=== PATIENT | female | born 1955 ===

== ENCOUNTER 2025-04-11 05:45 | Day surgery (SDC) | payer OTHER, SELFPAY ==
[2025-03-27 10:50] LABS: Hematocrit 37.1 % (37.0-47.0); Hemoglobin 12.7 g/dL (12.0-16.0); Mean Corp Hgb Conc. 34.2 g/dL (33.0-37.0); Mean Corpuscular Volume 89.4 fL (81.0-99.0); Platelet Count 244 10^3/uL (130-400); Red Cell Dist. Width 11.9 % (11.5-14.5)
[2025-03-27 11:12] LABS: Blood Urea Nitrogen 15 mg/dl (7-17); Calcium 9.5 mg/dl (8.4-10.2); Carbon Dioxide 28 mmol/L (22-30); Chloride 99 mmol/L (98-107); Glucose 101 mg/dl (70-99); Potassium 4.1 mmol/L (3.5-5.1); Sodium 136 mmol/L (135-145); eGFR > 60.00
[2025-03-27 13:49] VITALS: BMI 24.1
[2025-04-11] VITALS (8 sets, daily range): BP systolic 116–130; BP diastolic 67–82; BMI 24.1
[2025-04-11 06:32] LABS: Glucose - Point of Care 90 mg/dl (70-99)
[2025-04-11] MEDS: CELEBREX 200 MG PO (06:39)
[2025-04-11] MEDS: TYLENOL 1000 MG PO (06:40)
[2025-04-11] MEDS: NORMOSOL-R/PLASMALYTE-A 1000 IV (06:41)
== END 2025-04-11 10:02 | disposition home or self-care (01) ==
LOC: SDS 05:45
PROVIDERS: ATTENDING PHYSICIAN Orthopaedic Surgery Hand Surgery; FAMILY PHYSICIAN Family Medicine
DX: M75.121 Complete rotator cuff tear or rupture of right shoulder, not specified as traumatic (principal); M75.41 Impingement syndrome of right shoulder; M19.011 Primary osteoarthritis, right shoulder
CPT/HCPCS: 29827; 29824; 29826; 36415; 80048; 82962; 85027; 93005; C1713